=== PATIENT | male | born 1980 | race Caucasian/White ===

== ENCOUNTER 2016-12-13 19:20 | Emergency (ER) | payer OTHER ==
[~2016-12-13] VITALS: Ht 177.8 cm; Wt 93.6 kg
--- NOTE | ~2016-12-13 | EKG ---
PATIENT: MARIBEL ACHARYA UNIT #: [id number] Ventricular Rate: 106 BPM Atrial Rate: 106 BPM P-R Interval: 134 ms QRS Duration: 78 ms Q-T Interval: 332 ms QTC Calculation(Bezet): 441 ms P Crane: 40 degrees Calculated R Crane: -31 degrees Calculated T Crane: 9 degrees Diagnosis Line: Sinus tachycardia Diagnosis Line: Left axis deviation Diagnosis Line: Minimal voltage criteria for LVH, may be normal Diagnosis Line: variant Diagnosis Line: Abnormal ECG Diagnosis Line: When compared with ECG of 02-APR-2016 15:24, Diagnosis Line: Nonspecific T wave abnormality now evident in Diagnosis Line: Anterior leads Diagnosis Line: Confirmed by DANICA PATRICK MD ([id number]) on Diagnosis Line: 12/15/2016 11:14:52 PM INTERPRETING MD: DARNELL LOUISE
--- NOTE | ~2016-12-13 | CR72 ---
[facility] A Service of [facility] & [facility] RADIOLOGY TEXT RESULTS PATIENT: MARIBEL ACHARYA LOCATION: [facility] : 84 UNIT #: [id number] AGE: [address]: Cleveland Gottlieb MD SEX: M ORDER DR: [id number] [facility] [address] [place], [place] [address] [id number] E MR#: [id number] Acc #: [id number] NAME: MARIBEL ACHARYA : 1980 SEX: M STUDY DATE/TIME: 12/13/2016 20:22 UNIT: [facility] ROOM: STUDY DESCRIPTION: CR Chest Single View Portable Attending Physician: Cleveland Gottlieb M.D. Ordering Physician: Cleveland Gottlieb M.D. Primary Care Physician: Ezio Rubio M.D. MEDICAL IMAGING REPORT This report is preliminary unless electronic signature is present EXAM Portable chest HISTORY Syncope and shortness of air today. FINDINGS Cardiac size and pulmonary vascularity are normal. Relatively low lung volumes. No pulmonary infiltrates or effusions. IMPRESSION Negative Dictated by... Vinayak Reed M.D. THIS IS AN ELECTRONICALLY VERIFIED REPORT Vinayak Reed M.D. at 12/14/2016 1:21 PM DFL/robina TD: 12/14/2016 02:07 JOB #: [id number] MEDICAL IMAGING REPORT Page 1 of 1 COPY
--- NOTE | ~2016-12-13 | CT71 ---
[facility] A Service of [facility] & [facility] RADIOLOGY TEXT RESULTS PATIENT: MARIBEL ACHARYA LOCATION: [facility] : 84 UNIT #: [id number] AGE: [address]: Cleveland Gottlieb MD SEX: M ORDER DR: [id number] [facility] [address] [place], [place] [address] [id number] E MR#: [id number] Acc #: [id number] NAME: MARIBEL ACHARYA : 1980 SEX: M STUDY DATE/TIME: 12/13/2016 20:10 UNIT: [facility] ROOM: STUDY DESCRIPTION: CT Head Wo Contrast Attending Physician: Cleveland Gottlieb M.D. Ordering Physician: Cleveland Gottlieb M.D. Primary Care Physician: Ezio Rubio M.D. MEDICAL IMAGING REPORT This report is preliminary unless electronic signature is present EXAM CT head without contrast dated 12/13/2016. COMPARISON CT head without contrast dated 05/21/2007. HISTORY Syncope, fall with head injury. Posterior neck pain. Laceration to the front of the head. TECHNIQUE This CT exam was performed with one or more of the following radiation dose reduction techniques: automatic control, adjustment of mA and/or kV according to patient size, and iterative reconstruction. FINDINGS CT of the head was obtained without contrast. No acute intracranial hemorrhage, space-occupying mass, mass effect, midline shift or hydrocephalus. Nasal septum is deviated to the right. There is complete opacification of the right maxillary antrum. Orbits and the ocular structures do not demonstrate any significant abnormality. Bones, mastoid air cells are well-aerated. Patient has a laceration to the front of the head per history. It is probably in the right side of the forehead. Minimal subcutaneous fat stranding with punctate hypodensity probably air is seen in this region. No radiopaque foreign body or significant large hematoma. The frontal bones are intact without any fracture. IMPRESSION 1. No acute intracranial abnormality or fracture. 2. There is a history of laceration in the front of the head, probably along the right side of the forehead. No associated foreign body or underlying fracture is seen. Right orbit and the ocular structures [facility] A Service of [facility] & [facility] RADIOLOGY TEXT RESULTS PATIENT: MARIBEL ACHARYA LOCATION: [facility] : 82 UNIT #: [id number] AGE: [address]: Cleveland Gottlieb MD SEX: M ORDER DR: are intact. 3. Nasal septum is deviated to the right with complete opacification of the right maxillary sinus. It could be related to polyp or mucous retention cyst or sinusitis. Correlate clinically. Dictated by... Juan Vanessa M.D. THIS IS AN ELECTRONICALLY VERIFIED REPORT Juan Vanessa M.D. at 12/14/2016 7:56 PM CPR/rnr TD: 12/14/2016 02:13 JOB #: [id number] MEDICAL IMAGING REPORT Page 1 of 1 COPY
--- NOTE | ~2016-12-13 | CT52 ---
[facility] A Service of [facility] RADIOLOGY TEXT RESULTS PATIENT: MARIBEL ACHARYA LOCATION: [facility] : 82 UNIT #: [id number] AGE: [address]: Cleveland Gottlieb MD SEX: M ORDER DR: [id number] [facility] [address] [place], [place] [address] [id number] E MR#: [id number] Acc #: [id number] NAME: MARIBEL ACHARYA : 1980 SEX: M STUDY DATE/TIME: 12/13/2016 19:45 UNIT: [facility] ROOM: STUDY DESCRIPTION: CT Cervical Spine Wo Cont Attending Physician: Cleveland Gottlieb M.D. Ordering Physician: Cleveland Gottlieb M.D. Primary Care Physician: Ezio Rubio M.D. MEDICAL IMAGING REPORT This report is preliminary unless electronic signature is present EXAM CT cervical spine without contrast. HISTORY Syncope and fall today. Neck pain. TECHNIQUE This CT exam was performed with one or more of the following radiation dose reduction techniques: automatic exposure control, adjustment of mA and/or kV according to patient size, and iterative reconstruction. FINDINGS CT cervical spine without contrast demonstrates mild left cervical curve. No fracture or disc space narrowing or cervical subluxation. Mild right-sided facet arthropathy at C3-C4. IMPRESSION 1. No acute findings. 2. No fracture. 3. Mild left cervical curve. Dictated by... Vinayak Reed M.D. THIS IS AN ELECTRONICALLY VERIFIED REPORT Vinayak Reed M.D. at 12/14/2016 1:20 PM DFL/sean TD: 12/14/2016 01:11 JOB #: [id number] [facility] A Service [facility] RADIOLOGY TEXT RESULTS PATIENT: MARIBEL ACHARYA LOCATION: [facility] : 84 UNIT #: [id number] AGE: [address]: Cleveland Gottlieb MD SEX: M ORDER DR: MEDICAL IMAGING REPORT Page 1 of 1 COPY
[~2016-12-13 19:20] MED LIST: AMOXICILLIN PO; IBUPROFEN800 MG PO; NO MEDICATIONS; PEN-VEE K PO; PENICILLIN V P500 MG PO; ULTRACET TABLET1 TAB PO; ULTRAM PO; VICODIN 5/500 T1 TAB PO; VISCOUS LIDOCAINE; VOLTAREN75 MG PO
[2016-12-13 20:08] LABS: BASOPHIL% 0.6 % (0-2.5); EOSINOPHIL# 0.2 X10e3 (0-0.7); EOSINOPHIL% 2.8 % (0.0-7.0); HEMATOCRIT 38.1 % (38.0-50.0); LYMPHOCYTE# 2.8 X10e3 (1.0-3.5); LYMPHOCYTE% 35.8 % (17.0-45.0); MEAN CELL VOLUME 86.5 FL (83-96); MEAN CORPUSCULAR HEMOGLOBIN 29.6 PG (28-34); MEAN CORPUSCULAR HGB CONC 34.2 g/dL (30-36); MEAN PLATELET VOLUME 7.3 FL (6.5-11.5); MONOCYTE# 0.8 X10e3 (0-1.0); MONOCYTE% 9.8 % (3.0-12.0); PLATELET COUNT 218 X10e3 (140-420); RED CELL DISTRIBUTION WIDTH 13.2 % (11.0-15.5); WHITE BLOOD COUNT 7.7 X10e3 (4.0-10.5)
[2016-12-13 20:10] LABS: DIFF IND NO
[2016-12-13 20:21] LABS: POC - CKMB 4.4 ng/mL (0.0-7.9); POC - TROPONIN <0.05 ng/mL (<=0.05)
[2016-12-13 20:30] LABS: ALBUMIN SERUM 3.9 g/dL (3.5-5.0); BILIRUBIN, DIRECT 0.1 mg/dL (0.0-0.2); BILIRUBIN,INDIRECT 0.8 mg/dL (0.0-0.9); BILIRUBIN,TOTAL 0.9 mg/dL (0.2-2.0); BUN/CREATININE RATIO 13.75; CALCIUM SERUM 8.9 mg/dL (8.4-10.2); CREATININE SERUM 0.8 mg/dL (0.6-1.4); GLOM FILT RATE Estimated 116.6 mL/min (>60); POTASSIUM 3.6 mmol/L (3.5-5.1); PROTEIN TOTAL SERUM 7.6 g/dL (6.0-8.3)
[2016-12-13 22:14] LABS: AMPHETAMINE NEG (NEG); BARBITURATES NEG (NEG); BENZODIAZEPINES NEG (NEG); COCAINE NEG (NEG); MARIJUANA NEG (NEG); OPIATES NEG (NEG); TRICYCLIC ANTIDEPRESSANTS NEG (NEG); U METHADONE POS (NEG)
== END 2016-12-13 22:40 | disposition home or self-care (01) ==
LOC: CED 19:20
PROVIDERS: Emergency Medicine
DX: R55 Syncope and collapse (principal); S01.81XA Laceration without foreign body of other part of head, initial encounter; R33.9 Retention of urine, unspecified; F17.210 Nicotine dependence, cigarettes, uncomplicated; Z86.19 Personal history of other infectious and parasitic diseases; Z79.899 Other long term (current) drug therapy; Z88.8 Allergy status to other drugs, medicaments and biological substances; X58.XXXA Exposure to other specified factors, initial encounter
CPT/HCPCS: 36415; 70450; 71010; 72125; 80048; 80076; 80307; 82553; 82947; 84484; 85025; 93005; 96374; 99285; J1885; J2310